=== PATIENT | female | born 1990 | race Caucasian/White ===

== ENCOUNTER 2016-08-10 23:20 | Emergency (ER) | payer SELFPAY ==
[~2016-08-10] VITALS: Ht 170.2 cm; Wt 74.8 kg
[2016-08-10 23:23] VITALS: BP 121/83
[2016-08-10] MEDS ORDERED: AMOX500C PO (23:37)
[2016-08-10] MEDS ORDERED: HYDR-971 PO (23:37)
--- NOTE | 2016-08-10 23:37 | PHYS DOC ---
Past Medical History Past Medical History: No Pertinent History Past Surgical History: , Tubal ligation Alcohol Use: None Drug Use: None Adult General Chief Complaint Chief Complaint: DENTAL PROBLEM HPI HPI Patient is a 26 year old female presents to the emergency department with a 3 week history of right upper and lower dental pain. Patient states she has a dental appointment on Saturday at 5pm. She states she has been taking 500 mg Ibuprofen for the pain with out relief. Patient states she is also breast feeding. Patient denies fever, chills, nausea and vomiting. Review of Systems Review of Systems Constitutional: Denies fever or chills [] Eyes: Denies change in visual acuity, redness, or eye pain [] HENT: Denies nasal congestion or sore throat. C/o dental pain right upper and lower back teeth Respiratory: Denies cough or shortness of breath [] Cardiovascular: No additional information not addressed in HPI [] GI: Denies abdominal pain, nausea, vomiting, bloody stools or diarrhea [] : Denies dysuria or hematuria [] Musculoskeletal: Denies back pain or joint pain [] Integument: Denies rash or skin lesions [] Neurologic: Denies headache, focal weakness or sensory changes [] Allergies Allergies Allergies Coded Allergies Type Severity Reaction Last Updated Verified No Known Drug Allergies 08/10/16 No Physical Exam Physical Exam Constitutional: Well developed, well nourished, no acute distress, non-toxic appearance. [] HENT: Normocephalic, atraumatic, bilateral external ears normal, oropharynx moist, no oral exudates, nose normal. Bilateral tympanic membranes appear to be normal. Right upper dental area appears to be white an infected with no drainage. Right lower dental area appears to have an abscessed tooth over the tooth is broken off. No foul odor noted. Eyes: PERRLA, EOMI, conjunctiva normal, no discharge. [] Neck: Normal range of motion, no tenderness, supple, no stridor. [] Cardiovascular:Heart rate regular rhythm, no murmur [] Lungs & Thorax: Bilateral breath sounds clear to auscultation [] Skin: Warm, dry, no erythema, no rash. [] Back: No tenderness] Extremities: No tenderness, no cyanosis, no clubbing, ROM intact, no edema. [] Neurologic: Alert and oriented X 3, normal motor function, normal sensory function, no focal deficits noted. [] Psychologic: Affect normal, judgement normal, mood normal. [] Current Patient Data Vital Signs Vital Signs Date Time Temp Pulse Resp B/P Pulse Ox O2 Delivery O2 Flow Rate FiO2 08/10/16 23:23 97.4 70 16 100 Room Air 97.4 EKG EKG [] Radiology/Procedures Radiology/Procedures [] Course & Med Decision Making Course & Med Decision Making Pertinent Labs and Imaging studies reviewed. (See chart for details) She will be placed on amoxicillin 500 mg 4 times a day for the next 10 days. She 'll also be encouraged to take ibuprofen 800 mg every 8 hours. Also she'll be provided with hydrocodone for severe pain and discomfort. She was instructed that this medication cannot be taken while she is breast-feeding. She'll need to pump and dump as this medicine will cause drowsiness for the baby. She was also instructed that it would cause drowsiness for her as well as she may not take this if she needs to be alert and oriented. Also instructed patient to take any extra Tylenol as she had pulled out her medication bottle to show me the medicine she had been taking which she had been calling and ibuprofen. The medication was actually Tylenol extra strength. Patient will be discharged home with recommendations to keep the appointment with the dentist on Saturday. Signs symptoms to return back to emergency department as been provided. [] Dragon Disclaimer Dragon Disclaimer This electronic medical record was generated, in whole or in part, using a voice recognition dictation system. Departure Departure Impression: Primary Impression: Pain, dental Additional Impression: Dental abscess Disposition: HOME, SELF-CARE Condition: STABLE Patient Instructions: Dental Abscess, Dental Pain, [id number] Additional Instructions: Keep your follow-up appointment which she state you have on Saturday at 5 PM. Ibuprofen 800 mg every 8 hours with food stop taking few develop an upset stomach. Do not take any extra Tylenol with hydrocodone. Hydrocodone will cause drowsiness do not take any to be alert and oriented. This medication will cause drowsiness and the baby as well while you're breast- feeding. You will need to pump and dump while you are taking the hydrocodone. Take the antibiotics as directed. Do not stop taking the antibiotics once the teeth start feeling better. Return to emergency department for signs and symptoms of become worse. Scripts Hydrocodone/Apap 5-325 ([place] 5-325 Tablet)1 Each Tablet1 Tab PO PRN Q6HRS PRN PAIN #10 TAB Prov:TASHA HAYES NP 08/10/16 Amoxicillin 500 Mg Capsule1 Cap PO QID #40 CAP Prov:TASHA HAYES [employer]NER 08/10/16 Problem Qualifiers TASHA HAYES NP Aug 10, 2016 23:37
== END 2016-08-10 23:58 | disposition home or self-care (01) ==
LOC: ER 23:20
DX: K04.7 Periapical abscess without sinus (principal)
CPT/HCPCS: 99283

== ENCOUNTER 2017-05-20 16:54 | Emergency (ER) | payer SELFPAY ==
[~2017-05-20] VITALS: Ht 172.7 cm; Wt 68.0 kg
[~2017-05-20 16:54] MED LIST: AMOX500C PO; HYDR-971 PO
[2017-05-20 16:56] VITALS: BP 138/61
[2017-05-20] MEDS ORDERED: KETAMINE HCL 500 MG/10 ML VIAL. IV ONE (17:00)
[2017-05-20] MEDS ORDERED: IV NORMAL SALINE 1000ML BAG 1,000 ML IV ONE (17:00)
[2017-05-20] MEDS ORDERED: fentaNYL PF VIAL 100 MCG/2 ML VIAL IV ONE ×2 (17:00→17:15)
[2017-05-20] MEDS ORDERED: fentaNYL PF VIAL 100 MCG/2 ML VIAL ONE (17:02)
[2017-05-20] MEDS ORDERED: HYDR-2758 PO (17:30)
[2017-05-20] MEDS ORDERED: NAPR-683 PO (17:30)
--- NOTE | 2017-05-20 17:30 | PHYS DOC ---
Past Medical History Past Medical History: No Pertinent History Past Surgical History: , Tubal ligation Alcohol Use: None Drug Use: None Adult General Chief Complaint Chief Complaint: KNEE INJURY HPI HPI She is a pleasant 26-year-old female with a known history of prior patellar dislocation of the right knee sustained a repeat dislocation today by rotating to place her child inside the car she felt the knee pop and give way. She denies any numbness and tingling to the distal leg or foot. She was primarily of pain on the patella as it slid over to the lateral aspect of the leg. She denies any chest pain, abdominal pain, hip pain or other injuries that she sustained falling to the ground from a standing position. Pain is a 10 of 10 worse with any kind of touch or range of motion of the knee itself. Review of Systems Review of Systems Constitutional: Denies fever or chills [] GI: Denies abdominal pain, : Denies dysuria or hematuria [] Musculoskeletal: Denies back pain or joint pain she complains specifically of right knee pain where her patella dislocated Integument: Denies contusions or abrasions. Neurologic: Denies headache, focal weakness or sensory changes [] Endocrine: Denies polyuria or polydipsia [] All other systems were reviewed and found to be within normal limits, except as documented in this note. Current Medications Current Medications Current Medications Medications (Trade) Dose Ordered Sig/Lucía Start Time Stop Time Status Last Admin Dose Admin Fentanyl Citrate (Fentanyl 2ml Vial) 100 mcg 1X ONCE 05/20/17 17:15 05/20/17 17:16 DC 05/20/17 17:00 100 MCG Ketamine HCl 140 mg 1X ONCE 05/20/17 17:00 05/20/17 17:05 DC Sodium Chloride 1,000 ml @ 1,000 mls/hr 1X ONCE 05/20/17 17:00 05/20/17 17:59 Allergies Allergies Allergies Coded Allergies Type Severity Reaction Last Updated Verified No Known Drug Allergies 08/10/16 No Physical Exam Physical Exam Vital signs noted on the chart patient within normal limits. Constitutional: Well developed, well nourished, no acute distress, non-toxic appearance. [] HENT: Normocephalic, atraumatic, bilateral external ears normal, oropharynx moist, no oral exudates, nose normal. [] Eyes: PERRLA, EOMI, conjunctiva normal, no discharge. [] Neck: Normal range of motion, no tenderness, supple, no stridor. [] Cardiovascular:Heart rate regular rhythm, no murmur [] Lungs & Thorax: Bilateral breath sounds clear to auscultation [] Skin: Warm, dry, no erythema, no rash. [] Back: No tenderness, Extremities: He presents with obvious deformity to the right knee with lateral dislocation of the patella. Patient's knee is held in a flexed position at about 45. She has normal sensation to light touch of her prescription, brisk capillary refill +2 peripheral pulses at the digitalis pedis and posterior tibialis are intact Neurologic: Alert and oriented X 3, normal motor function, normal sensory function, no focal deficits noted. [] Psychologic: Affect normal, judgement normal, mood normal. [] Current Patient Data Vital Signs Vital Signs Date Time Temp Pulse Resp B/P (MAP) Pulse Ox O2 Delivery O2 Flow Rate FiO2 05/20/17 17:20 98.3 102 18 164/91 05/20/17 16:56 98 Room Air EKG EKG [] Radiology/Procedures Radiology/Procedures [] Course & Med Decision Making Course & Med Decision Making Pertinent Labs and Imaging studies reviewed. (See chart for details) []Presents with obvious dislocation of the patella on the right. Patient was immediately consented for sedation for reduction of this patella. Her last meal was noon. Last fluid drink was noon. She has no medical problems, she has no problems anesthesia, no allergies to medications. Patient denies any other neurological numbness below the injury. She was given a fluid bolus of 1000 mL of normal saline, as she was also provided fentanyl IV pain medication to help with medication of the joint. Patient was given 150 mg of IV ketamine and a dose of 2 mg/kg based on a weight of 150-160 pounds. Dragon Disclaimer Dragon Disclaimer This electronic medical record was generated, in whole or in part, using a voice recognition dictation system. Departure Departure Impression: Primary Impression: Closed patellar dislocation Disposition: 01 HOME, SELF-CARE Condition: STABLE Referrals: NO PCP (PCP) Patient Instructions: Patellar Dislocation Additional Instructions: My discharge plan Follow up: In addition patient is asked to followup with their primary doctor, within a week for followup examination and to address patient's ongoing medical conditions. Patient is advised that in the Emergency Department primary complaints are addressed and only in light of known signs and symptoms. Patient should return immediately to the emergency department if new signs and symptoms develop or patient's condition worsens in any way. At time of discharge patient was in stable condition and had verbalized understanding of the discharge instructions. Although there is no acute fracture noted on x-ray today this does not mean subtle fractures are not missed on initial presentation. If your symptoms are not improved within 1 week or if symptoms worsen despite oral treatment with pain medications I would advise follow-up with your primary care doctor to have a repeat set of x-rays completed to ensure no subtle fractures were missed. Please understand that sometimes x-rays are missed red and if there is a misreading of your x-rays she will be contacted by the emergency room physician to talk about appropriate treatment. Scripts Naproxen (NAPROSYN) 500 Mg Tablet 1 TAB PO BID, #14 TAB 1 Refill Prov: JERRY NORMAN MD 05/20/17 Hydrocodone Bit/Acetaminophen (HYDROCODONE-APAP 5-325 ) 1 Each Tablet 1-2 TAB PO PRN Q6HRS Y for PAIN for 5 Days, #10 TAB 0 Refills Prov: JERRY NORMAN MD 05/20/17 Procedural Sedation Proc Sed Indication: [Patellar dislocation] Consent: I have discussed with the patient and/or the patient telecommunications sales representative the indication, alternatives, and the possible risks and /or complications of the planned procedure and the anesthesia methods. The patient and/or patient telecommunications sales representative appear to understand and agree to proceed. sHe had informed consent signed both for procedure sedation and for the procedure itself. Pre-Sedation Documentation and Exam: [Patient presents with a lateral dislocation of the right patella. She has no other injury below the knee] Airway Assessment: normal. mallipatti score 1 Prior History of Anesthesia Complications: none. ASA Classification: [1] Sedation/ Anesthesia Plan: [She was given a liter of fluids normal saline bolus provided 100 mg of IV fentanyl before the procedure began. Patient was given 2 mg's with sodium of IV ketamine dosed at a total of 150 mg. Patient was placed on monitors, and tidal capnometry was placed in the patient. RT was at bedside, patient was on the monitors, suction and and back were placed in rapid disposition.] Medications Used: see nursing notes. Monitoring and Safety: The patient was placed on a groundwater monitoring technician and vital signs, pulse oximetry and level of consciousness were continuously evaluated throughout the procedure. The patient was closely monitored until recovery from the medications was complete and the patient had returned to baseline status. Respiratory therapy was on standby at all times during the procedure. (The following sections must be completed) Post-Sedation Vital Signs: [EDM.VS] Post-Sedation Exam: [With lateral pressure and extension of the knee patient's patella was replaced in its proper anatomical location. Patient tolerated the procedure well patient had her knee immobilized by myself and staff. Capillary refill after the procedure reduction was brisk at +2, her posterior tibialis and dorsalis pedis pulses were intact. +2.] Complications: none. Vital Signs Vital Signs Date Time Temp Pulse Resp B/P (MAP) Pulse Ox O2 Delivery O2 Flow Rate FiO2 05/20/17 17:20 98.3 102 18 164/91 05/20/17 16:56 98 Room Air JERRY NORMAN MD May 20, 2017 17:30
--- NOTE | 2017-05-21 08:06 | RAD ---
Indication: Knee reduction. Time of exam 1732 hours. 2 views of the right knee demonstrate normal alignment. The joint spaces are well maintained. Articular surfaces are smooth. No fracture, dislocation or effusion is seen. Impression: No acute abnormality is detected.
== END 2017-05-20 18:15 | disposition home or self-care (01) ==
LOC: ER 16:54
DX: S83.004A Unspecified dislocation of right patella, initial encounter (principal); X50.9XXA Other and unspecified overexertion or strenuous movements or postures, initial encounter; Y93.89 Activity, other specified; Y99.8 Other external cause status; Y92.89 Other specified places as the place of occurrence of the external cause
CPT/HCPCS: 27560; 73560; 96361; 96374; 99285; J3010; J3490; J7030; 99152